=== PATIENT | male | born 1955 | race Caucasian/White ===

== ENCOUNTER → 2017-10-27 16:46 | Outpatient (CLI) | payer OTHER, SELFPAY | PROVIDERS: Visit Provider Otolaryngology Otolaryngology/Facial Plastic Surgery | DX: J32.9 Chronic sinusitis, unspecified (principal) | CPT/HCPCS: 87070; 87077; 87205 ==

== ENCOUNTER 2018-05-07 02:06 | Emergency (ER) | payer OTHER, SELFPAY ==
[2018-05-07 02:07] VITALS: BP 165/72; PULSE 76; RESP 16; TEMP 36.7; O2SAT 95; BMI 39.4
--- NOTE | 2018-05-07 02:22 | ED.VISSUMM ---
- ER Visit Summary Date of Service: 05/07/18 Chief Complaint: Left leg pain History of Present Illness: The patient is a 62 M presents to the emergency department with intermittent left leg pain. The patient states his symptoms began about 3 weeks ago. He did dull ache in his posterior calf. He thought that he may have pulled a muscle. States it would bother him from time to time but then will go away. He states over the past 2 days, feels like his leg has been swelling. He denies chest pain or trouble breathing. He has no history of pulmonary embolus. He does not take any blood thinners. He denies any back pain or neuropathic pain. He has had no difficulty walking, but does admit to some pain in his calf when he does walk. He also has some mild pain at rest. Physical Examination: Vital signs reviewed General: Well-nourished, well-developed Head: Normocephalic, atraumatic Eyes: Pupils equal and reactive, extraocular muscles intact Neck, supple, no lymphadenopathy Heart: Regular rate and rhythm Respiratory: No distress, clear bilaterally Abdomen: Soft, nontender, nondistended, no peritoneal signs Back: Nontender Extremities: Nontender, no edema, no cords Skin: Normal color no rash Neuro: Alert and oriented, no focal or lateralizing deficits Test Results: [] Emergency Department Course and Treatment: The patient has normal pulses of his lower extremities. There is no significant edema. Unfortunately, at this time we do not have a formal ultrasound. I did do a two-point ultrasound of his posterior popliteal fossa in his common femoral vein. These are both compressible without evidence of DVT. Again, the pulses of his lower extremity are normal. He does have some mild eczema, but there is no cellulitis or streaking. I do not have a clear indication to start him on anticoagulants because I do feel that we can get a formal ultrasound done within the next 10 hours and he has a negative two-point test. The patient is comfortable with this plan of care. I have arranged for outpatient ultrasound to be done today. He was counseled on concerning symptoms and reasons to return. He will be discharged home. Treatment Plan: [] Disposition: Discharge Impression: 1. Left calf pain This note was generated with [employer] dictation software. It may contain incorrect words, spelling, and punctuation that were not noted in review of the chart prior to signing ED Disposition - Plan for ED Patient: Chief Complaint: Lower Extremity Injury Instructions: ED Leg Swelling Unilateral Referrals: Narinder Connell MD [Primary Care Provider] -
== END 2018-05-07 02:54 | disposition home or self-care (01) ==
LOC: ED 02:23
PROVIDERS: Emergency Provider Emergency Medicine; Family Provider Family Medicine; PCP Family Medicine
DX: M79.662 Pain in left lower leg (principal); L30.9 Dermatitis, unspecified; E66.9 Obesity, unspecified; J45.909 Unspecified asthma, uncomplicated; K21.9 Gastro-esophageal reflux disease without esophagitis; I10 Essential (primary) hypertension; Z79.82 Long term (current) use of aspirin; Z79.899 Other long term (current) drug therapy
CPT/HCPCS: 99282

== ENCOUNTER → 2018-05-07 12:12 | Outpatient (CLI) | payer OTHER, SELFPAY ==
--- NOTE | 2018-05-07 12:24 | VDLE_ITS ---
Reason For Study: Swelling RIGHT LEFT CFV is compressible, spontaneous, phasic, GSV is normal. competent and demonstrates normal CFV is compressible, spontaneous, phasic, augmentation. competent, and demonstrates normal Procedure augmentation. Exam performed in department. FV is compressible, spontaneous, phasic, A preliminary report was called and/or faxed competent and demonstrates normal to Dr. Connell. augmentation. POP V is compressible, spontaneous, phasic, competent and demonstrates normal augmentation. T/P Trunk is compressible. PTV is compressible. LT PerV is compressible. Difficult to visualize calf veins due to swelling/pt body habitus. <> Interpretation Summary Deep veins of the left lower extremity are patent and compressible segmentally. There is no evidence of left lower extremity deep vein thrombosis. Valvular competence appears intact within the proximal deep venous system on the left . The left greater saphenous vein appears patent and compressible segmentally. The deep veins of the left calf were not well visualized due to swelling and the patient's body habitus. Ordering Physician: Alex Ludwig Referring Physician: Narinder Connell Performed By: Yadira Leyva, ELDON, RVT
== END ==
PROVIDERS: Family Provider Family Medicine; PCP Family Medicine; Referring Provider Emergency Medicine; Visit Provider Emergency Medicine
DX: R60.0 Localized edema (principal)
CPT/HCPCS: 93971

== ENCOUNTER 2020-07-18 08:30 | Outpatient (RCR) | payer MEDICARE, OTHER, SELFPAY ==
--- NOTE | 2020-07-11 09:06 | HP.PTEVAL ---
Patient's Visit Information RAMY ROSENTHAL is a 64 year old M referred to Physical Therapy by NAFISA JERONIMO with a diagnosis of CALCIFIC TENDONITIS RIGHT SHOULDER,ACUTE RIGHT SHOULDER PAIN. Date of Evaluation: 07/11/20 Physical Therapist: Paulo Chen, PT, Cert MDT, OCS - Visit Plan Frequency: 1-2x /Week Duration: 4 Weeks Plan: PT INTERVENTIONS RTC STRENGTHNEING- ECCENTRICS ,SCPAULAR STRENGTHENING ,POSTURAL EX'S -STABILIZATION - Subjective This 64 y/o male presents to physical therapy with riight shoulder pain. Patient has had right shoulder pain for about 1 month. Patient intially had pain with activity with overhead activities ,thus symptoms became worse . Intailly seen family dr had x-rays showed OA . Seen DR orthopedic DR who reffered to another DR who did a procedure to disolve calcium depost follwed by marina. Patient reports sine procedure doing alot. Aggraveting factors with ADLs and housework tasks affects housework tasks. Patient was gice celebrex. Alleviating factors rest and procedure. Denies parathesia/tingling. Patient slleping okay. Patient condition affects QOL and housework tasks. Patient MD strengthening and stabilization. SOCAIL: . 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 PALPATION; tender AC. NEURO: intact. AROM: shoulder flexion 160 degrees,abduction 150 degrees in scapation. MMT: infraspinatous 4/5,subscap 4/5,supraspinatous 4-/5,lateral deltoid 4-/5 mild pain,anterior detoid 4-/5,MT 4-/5,LT 3+/5. G-H FUNCTION:l 1:1 - Special Tests R Shoulder External Rotation Lag Test - RC Tear: Negative R Shoulder Supine Impingement Test - RC Tear: Negative R Shoulder Lift Off Test - Subscapular Tear: Negative R Shoulder Empty Can - SS: Negative R Shoulder Neer - Impingement: Positive R Shoulder Burris Mika - Impingement: Positive R Shoulder AC Resisted - AC: Negative - Goals Goal 1:: I with HEP Goal Time Frame: 4-6 Weeks Goal 2:: Improve posture for ADL'S Goal Time Frame: 4-6 Weeks Goal 3:: Decrease shoulder pain by 75% or > to improve function Goal Time Frame: 4-6 Weeks Goal 4:: Patient to improve strength Rtc 4+/5 and scapular strength 4/5 to improve function. Goal Time Frame: 4-6 Weeks Goal 5:: Patient to improve shoulder disabilty dash by 4 points or> to improve QOL. Goal Time Frame: 4-6 Weeks - Rehabilitation Potential Physical Therapy Diagnosis: This patient has calcific tendonitis of right shoulder with pain and some weakness impairs ADLS and OH activities Rehabilitation Potential: Good - Anticipated Interventions Patient/Client Instruction: Educate patient on: Condition, Plan of Care For the Purpose of:: To decrease pain, To decrease swelling/inflammation, To improve muscle performance and motor function, To improve ability to perform ADL's, To increase tolerance to activity/condition/position, To improve ability of physical actions for home/community/work/leisure, To improve health of tissue, To decrease soft tissue restriction, To increase flexibility/ROM, To improve ability to perform tasks related to life management Therapeutic Exercise to Include: Strength training, Postural training, Flexibilty training, Active ROM, Scapular Strength/Stabilization For the Purpose of:: To decrease pain, To increase ROM, To improve muscle performance and motor function, To increase tolerance to activity/condition/position, To improve performance and independence with ADL's, To improve ability of physical actions for home/community/work/leisure, To improve health of tissue, To decrease soft tissue restriction, To increase flexibility/ROM Thank you for the opportunity to evaluate your patient. For Medicare and Medicare HMO plans, please review the plan of care and approve it. It will need to be FAXED BACK to us at [phone] for Medicare purposes. For Medicare only, by signing this I certify the plan of care. Please let me know if there are questions or concerns regarding this plan of care. Physician Signature: Date:
--- NOTE | 2020-07-18 09:17 | HP.PTDCSUM ---
It has been my pleasure to treat RAMY ROSENTHAL referred by NAFISA JERONIMO, with the diagnosis of CALCIFIC TENDONITIS RIGHT SHOULDER,ACUTE RIGHT SHOULDER PAIN for a total of 2 visit(s). Discharge Date: Please see the following information for a summary of their discharge status. Subjective: Patient reports that he is feeling good today. States he is feeling no pain. Right Shoulder Pain Intensity (Out of 10): 0 % Improvement: 100 Objective/Function: Reports some clicking during exercise but denies pain with clicking. Expresses good understanding of HEP. Posture: WNL. Palpation: WNL. AROM: flexion 155 degrees, abduction 165 degrees. MMT: flexion 5/5, abd 4+/5, IR 5/5, ER 4+/5 Goal 1:: I with HEP Goal Progress: Goal Met Goal 2:: Improve posture for ADL'S Goal Progress: Goal Met Goal 3:: Decrease shoulder pain by 75% or > to improve function Goal Progress: Goal Met Goal 4:: Patient to improve strength Rtc 4+/5 and scapular strength 4/5 to improve function. Goal Progress: Progressing Goal 5:: Patient to improve shoulder disabilty dash by 4 points or> to improve QOL. Goal Progress: Progressing Plan: D/C to HEP. If there are questions or concerns regarding this patient's physical therapy, please feel free to call me at [phone]. Thank you for the referral of this patient. Sincerely, Paulo Chen, PT, Cert MDT, OCS
== END 2020-07-18 19:00 | disposition home or self-care (01) ==
LOC: PT 08:30
PROVIDERS: PCP Family Medicine
DX: M75.31 Calcific tendinitis of right shoulder (principal)
CPT/HCPCS: 97110; 97161

== ENCOUNTER 2020-09-04 10:40 | Outpatient (RCR) | payer MEDICARE, SELFPAY ==
[2020-09-04] MEDS: COVID-19 VACC, MRNA(PFIZER)/PF 30 MCG/0.3 ML SYRINGE IM (08:43)
[2020-09-25] MEDS: COVID-19 VACC, MRNA(PFIZER)/PF 30 MCG/0.3 ML SYRINGE IM (08:30)
== END 2020-09-04 23:59 ==
LOC: IMMUN 10:40
PROVIDERS: PCP Family Medicine; Visit Provider Family Medicine
DX: Z23 Encounter for immunization (principal)
CPT/HCPCS: 0001A; 0002A